=== PATIENT | male | born 1980 | race Caucasian/White ===

== ENCOUNTER 2019-11-12 16:01 | Emergency (ER) | payer OTHER ==
[2019-11-12] MEDS ORDERED: FAMOTIDINE 20 MG/2 ML VIAL IV ONE (16:09)
[2019-11-12] MEDS ORDERED: PROMETHAZINE INJ 25 MG/ML AMP ONE (16:09)
[2019-11-12] MEDS ORDERED: KETOROLAC 30 MG/ML INJ ONE (16:09)
[2019-11-12] MEDS ORDERED: ONDANSETRON 4 MG/2 ML VIAL ONE (16:09)
--- NOTE | 2019-11-12 16:46 | RAD REPORT ---
EXAM DESCRIPTION: CT - Stone Protocol - 11/12/2019 4:28 pm CLINICAL HISTORY: Abdominal pain. Right flank pain COMPARISON: 2007 TECHNIQUE: Computed axial tomography of the abdomen pelvis was obtained without oral or IV contrast. Lack of IV and oral contrast limits evaluation of solid organs, bowel, and vessels. Coronal reformat ruth images were obtained and reviewed. All CT scans are performed using dose optimization technique as appropriate and may include automated exposure control or mA/KV adjustment according to patient size. FINDINGS: A renal calculus is not seen. Mild right hydronephrosis. 3 millimeter calculus distal righ t ureter Hounsfield unit 864 The liver, spleen, pancreas and left adrenal appear grossly normal. 7 millimeter right adrenal lipoma There is no evidence of diverticulitis. The appendix appears normal Small inguinal hernias. Spondylolysis L5 IMPRESSION: 3 millimeter calculus distal right ureter resulting in mild right hydronephrosis
[2019-11-12 17:27] LABS: Absolute Lymphocytes (CBC) 5.8 K/uL (0.7-4.9); Basophils % 0.3 % (0-1.3); Hematocrit 45.4 % (39.6-49.0); Lymphocytes % 38.3 % (15.3-44.8); MPV 9.9 fL (7.6-11.3); RBC Red Blood Cell Count 5.09 M/uL (4.33-5.43)
[2019-11-12 17:30] LABS: Albumin 4.5 g/dL (3.4-5.0); Bilirubin Direct 0.1 mg/dL (0-0.2); Bilirubin Total 0.5 mg/dL (0.2-1.0); Magnesium 1.7 mg/dL (1.8-2.4); Potassium 3.2 mmol/L (3.5-5.1)
[2019-11-12] MEDS ORDERED: MAGNESIUM SULFATE 1 gm IVPB 1 GM/100 ML BAG IV ONE (17:33)
[2019-11-12] MEDS ORDERED: TAMSULOSIN 0.4 MG SR CAP ONE (17:33)
[2019-11-12 17:42] LABS: Urine Bacteria <20 /HPF (NONE SEEN); Urine Culture Reflex Order NOT NEEDED; Urine RBC 20-50 /HPF (NONE SEEN)
[2019-11-12 17:42] LABS: Urine Blood 3+ (NEG); Urine Glucose NEGATIVE (NEG); Urine Protein NEGATIVE (NEG); Urine Specific Gravity >1.030 (1.005-1.030)
--- NOTE | 2019-11-12 17:47 | EDPHYS ---
Physician Documentation [facility] Name: Cheikh Ross Age: 39 yrs Sex: Male : 1980 Arrival Date: 11/12/2019 Time: 16:03 Bed 13 Private MD: ED Physician Tyler Saldaña HPI: 11/11 16:05 This 39 yrs old Male presents to ER via Unassigned with complaints of cp Abdominal Pain. 16:05 The patient presents with abdominal pain right flank. Onset: The symptoms/episode cp began/occurred 3 day(s) ago. 16:05 The symptoms radiate to right back, right testicle. cp 16:05 Associated signs and symptoms: Pertinent positives: nausea and vomiting, Pertinent cp negatives: constipation, diarrhea, fever. Historical: - Allergies: 16:11 No Known Allergies; em - Home Meds: 16:11 None [Active]; em - PMHx: 16:11 None; em - PSHx: 16:11 None; em - Immunization history:: Adult Immunizations up to date. - Social history:: Smoking status: Patient denies any tobacco usage or history of. ROS: 16:15 Constitutional: Negative for body aches, chills, fever. cp 16:15 Eyes: Negative for injury, pain, redness, and discharge. cp 16:15 ENT: Negative for ear pain, sore throat, difficulty swallowing, difficulty handling secretions. 16:15 Cardiovascular: Negative for chest pain, palpitations. 16:15 Respiratory: Negative for cough, shortness of breath, wheezing. 16:15 Abdomen/GI: Positive for abdominal pain, nausea and vomiting, Negative for diarrhea, constipation. 16:15 Back: Positive for flank pain, on the right. 16:15 : Positive for urinary frequency, testicular pain 16:15 Neuro: Negative for altered mental status, headache, weakness. 16:15 All other systems are negative. Exam: 16:20 Constitutional: The patient appears in no acute distress, alert, awake, non-toxic, well cp developed, well nourished, uncomfortable. 16:20 Head/Face: Normocephalic, atraumatic. cp 16:20 Eyes: Periorbital structures: appear normal, Conjunctiva: normal, no exudate, no injection, Sclera: no appreciated abnormality, Lids and lashes: appear normal, bilaterally. 16:20 ENT: External ear(s): are unremarkable, Nose: is normal, Mouth: Lips: moist, Oral mucosa: moist, Posterior pharynx: Airway: no evidence of obstruction, patent. 16:20 Chest/axilla: Inspection: normal, Palpation: is normal, no crepitus, no tenderness. 16:20 Cardiovascular: Rate: normal, Rhythm: regular. 16:20 Respiratory: the patient does not display signs of respiratory distress, Respirations: normal, no use of accessory muscles, no retractions, labored breathing, is not present, Breath sounds: are clear throughout, no decreased breath sounds, no stridor, no wheezing. 16:20 Abdomen/GI: Inspection: abdomen appears normal, Bowel sounds: active, all quadrants, Palpation: soft, in all quadrants, mild abdominal tenderness, in the anterior aspect of right lateral abdomen, posterior aspect of right lateral abdomen and right lower quadrant, rebound tenderness, is not appreciated, voluntary guarding, is not appreciated, involuntary guarding, is not appreciated. 16:20 Back: pain, that is mild, of the right mid back. 16:20 Neuro: Orientation: to person, place \T\ time. Mentation: is normal, Motor: moves all fours, strength is normal. Vital Signs: 15:49 BP 117 / 95; Pulse 69; Resp 20; Pulse Ox 97% ; ah 15:55 BP 119 / 76; Pulse 89; Resp 24; Temp 99.2(O); Pulse Ox 100% on R/A; Weight 90.72 kg; em Height 5 ft. 6 in. (167.64 cm); Pain 10/10; 17:30 BP 117 / 77; Pulse 73; Resp 18; Pulse Ox 97% ; ah 15:55 Body Mass Index 32.28 (90.72 kg, 167.64 cm) em MDM: 16:06 Patient medically screened. cp 16:30 Differential diagnosis: appendicitis, cholecystitis, Cholelithiasis, Pyelonephritis, cp Testicular Torsion, Ureterolithiasis, urinary tract infection. 17:34 ED course: VSS. Pain and nausea improved, patient appears more comfortable. cp 17:45 Data reviewed: vital signs, nurses notes, lab test result(s), radiologic studies, CT cp scan. 17:45 Response to treatment: the patient's symptoms have markedly improved after treatment. 11/11 16:06 Order name: Basic Metabolic Panel; Complete Time: 17:32 11/11 17:32 Interpretation: Normal except: K 3.2; GLUC 131; GFR 75. 11/11 16:06 Order name: CBC with Diff; Complete Time: 17:44 cp 11/11 17:44 Interpretation: Normal except: WBC 15.1; NEUT A 8.2; LYMA 5.8. 11/11 16:06 Order name: Hepatic Function; Complete Time: 17:32 11/11 16:06 Order name: Lipase; Complete Time: 17:32 11/11 16:06 Order name: Magnesium; Complete Time: 17:32 11/11 17:33 Interpretation: Abnormal: MG 1.7. 11/11 16:59 Order name: Urine Microscopic Only; Complete Time: 17:44 cp 11/11 16:06 Order name: CT Stone Protocol; Complete Time: 16:57 cp 11/11 17:30 Interpretation: Report reviewed. 11/11 16:59 Order name: Urine Culture 11/11 17:24 Order name: Urine Dipstick--Ancillary (enter results); Complete Time: 17:44 11/11 16:06 Order name: IV Saline Lock; Complete Time: 16:12 cp 11/11 16:06 Order name: Labs collected and sent; Complete Time: 16:12 11/11 16:59 Order name: Urine Dipstick-Ancillary (obtain specimen); Complete Time: 17:32 cp 11/11 17:01 Order name: Urine Strainer; Complete Time: 18:17 11/11 17:34 Order name: PO challenge; Complete Time: 17:53 cp Administered Medications: 16:00 Drug: NS 0.9% 1000 ml Route: IV; Rate: 1 bolus; Site: right antecubital; em 16:02 Drug: Zofran (Ondansetron) 4 mg Route: IVP; Site: right antecubital; em 18:15 Follow up: Response: No adverse reaction 16:04 Drug: TORadol - Ketorolac 15 mg Route: IVP; Site: right antecubital; em 18:14 Follow up: Response: No adverse reaction 16:05 Drug: Pepcid 20 mg Route: IVP; Site: right antecubital; em 18:14 Follow up: Response: No adverse reaction 16:07 Drug: Phenergan 25 mg Route: IVP; Site: right antecubital; em 18:17 Follow up: Response: No adverse reaction; Nausea is decreased 17:26 Drug: Rocephin 1 grams Route: IV; Rate: calculated rate; Site: right antecubital; 17:30 Drug: Flomax 0.4 mg Route: PO; ah 18:14 Follow up: Response: No adverse reaction 17:32 Drug: Magnesium Sulfate 1 grams Route: IVPB; Infused Over: 1 hrs; Site: right ah antecubital; 18:32 Follow up: IV Status: Completed infusion; IV Intake: 100ml vc 17:53 Drug: Potassium Effervescent Tablet 50 mEq Route: PO; vc 18:14 Follow up: Response: No adverse reaction Disposition: 11/12 07:28 Co-signature as Attending Physician, Tyler Saldaña MD I agree with the assessment and kdr plan of care. Disposition: 11/12/19 17:46 Discharged to Home. Impression: Calculus of ureter - right, Nausea and vomiting. - Condition is Stable. - Discharge Instructions: Kidney Stones, Nausea and Vomiting, Adult, Renal Colic. - Prescriptions for Keflex 500 mg Oral Capsule - take 1 capsule by ORAL route every 12 hours for 7 days; 14 capsule. Tylenol- Codeine #3 300-30 mg Oral Tablet - take 2 tablets by ORAL route every 6 hours As needed; 20 tablet. Flomax 0.4 mg Oral Capsule, Sust. Release 24 hr - take 1 capsule by ORAL route once daily As needed 1/2 hour following the same meal each day; 5 capsule. promethazine 25 mg Oral Tablet - take 1 tablet by ORAL route every 6 hours As needed; 20 tablet. - Medication Reconciliation Form, Thank You Letter, Antibiotic Education, Prescription Opioid Use form. - Follow up: Arthur Mccoy MD; When: 1 - 2 days; Reason: Worsening of condition. - Problem is new. - Symptoms have improved. Signatures: Dispatcher [employer] EDTyler Willis MD MD kdr Munoz, Edgar, RN RN em Tom Zepeda PA PA cp Calcote, Vanessa, RN RN vc Harris, Amy, RN RN Corrections: (The following items were deleted from the chart) 07/23 17:44 17:44 Normal except: WBC 15.1; NEUT A 8.2. cp cp 19:06 17:46 11/12/2019 17:46 Discharged to Home. Impression: Calculus of ureter - right; vc Nausea and vomiting. Condition is Stable. Forms are Medication Reconciliation Form, Thank You Letter, Antibiotic Education, Prescription Opioid Use. Follow up: Arthur Mccoy; When: 1 - 2 days; Reason: Worsening of condition. Problem is new. Symptoms have improved. cp
--- NOTE | 2019-11-12 17:47 | ER ---
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 15:55 Method Of Arrival: EMS: [facility] em 15:55 Coronavirus screen: Patient denies a cough. Patient denies shortness of breath or em difficulty breathing. Patient denies measured and/or subjective temperature greater than 100.4F prior to today's visit. Patient denies travel on a cruise ship or to a country the [facility]NOTE 3] currently lists as an affected area. Patient denies contact with known and/or suspected case of COVID-19. Ebola Screen: Patient negative for fever greater than or equal to 101.5 degrees Fahrenheit, and additional compatible Ebola Virus Disease symptoms Patient denies exposure to infectious person. Patient denies travel to an Ebola-affected area in the 21 days before illness onset. No symptoms or risks identified at this time. Initial Sepsis Screen: Does the patient meet any 2 criteria? No. Patient's initial sepsis screen is negative. Does the patient have a suspected source of infection? No. Patient's initial sepsis screen is negative. Risk Assessment: Do you want to hurt yourself or someone else? Patient reports no desire to harm self or others. Onset of symptoms was November 12, 2019. 15:55 Acuity: KASIA 2 em Historical: - Allergies: 16:11 No Known Allergies; em - Home Meds: 16:11 None [Active]; em - PMHx: 16:11 None; em - PSHx: 16:11 None; em - Immunization history:: Adult Immunizations up to date. - Social history:: Smoking status: Patient denies any tobacco usage or history of. Screenin:46 Abuse screen: Denies threats or abuse. Nutritional screening: No deficits noted. Tuberculosis screening: No symptoms or risk factors identified. Fall Risk None identified. Assessment: 16:15 General: Appears in no apparent distress. Behavior is cooperative, crying, restless. Pain: Complains of pain in right femoral area, right inguinal area and right hip Pain currently is 10 out of 10 on a pain scale. Neuro: Level of Consciousness is awake, alert, obeys commands, Oriented to person, place, time, situation. Cardiovascular: Heart tones S1 S2 present Capillary refill < 3 seconds Patient's skin is warm and dry. Respiratory: Airway is patent Respiratory effort is even, unlabored. GI: Bowel sounds present X 4 quads. Abdomen is tender to palpation in right lower quadrant Reports nausea, vomiting. : Reports dysuria. Derm: Skin is intact, is healthy with good turgor, Skin is. 18:15 Reassessment: Patient appears in no apparent distress at this time. Patient and/or vc family updated on plan of care and expected duration. Pain level reassessed. Patient is alert, oriented x 3, equal unlabored respirations, skin warm/dry/pink. Patient denies pain at this time. Patient states feeling better. Patient states symptoms have improved. 18:42 Reassessment: Prescription printer is not working this time. Awaiting on prescriptions. Pt notified of wait. Discussed discharge plans. Pt voiced understanding. Vital Signs: 15:49 BP 117 / 95; Pulse 69; Resp 20; Pulse Ox 97% ; ah 15:55 BP 119 / 76; Pulse 89; Resp 24; Temp 99.2(O); Pulse Ox 100% on R/A; Weight 90.72 kg; em Height 5 ft. 6 in. (167.64 cm); Pain 10/10; 17:30 BP 117 / 77; Pulse 73; Resp 18; Pulse Ox 97% ; ah 15:55 Body Mass Index 32.28 (90.72 kg, 167.64 cm) em ED Course: 15:55 Maintain EMS IV. Dressing intact. Good blood return noted. Site clean \T\ dry. Gauge \T\ em site: 20 G RAC. 16:03 Patient arrived in ED. ss 16:04 oTm Zepeda PA is PHCP. cp 16:04 Tyler Saldaña MD is Attending Physician. cp 16:11 Triage completed. em 16:11 Arm band placed on. em 16:15 Gail Keen, RN is Primary Nurse. ah 16:28 CT Stone Protocol In Process Unspecified. EDMS 17:37 Urine Dipstick--Ancillary (enter results) Sent. kj1 17:37 Urine Culture Sent. kj1 17:37 Urine Microscopic Only Sent. kj1 17:45 Arthur Mccoy MD is Referral Physician. cp 17:46 Patient has correct armband on for positive identification. Placed in gown. Bed in low ah position. Call light in reach. Side rails up X2. Pulse ox on. NIBP on. 18:26 No provider procedures requiring assistance completed. IV discontinued, intact, vc bleeding controlled, No redness/swelling at site. Pressure dressing applied. Administered Medications: 16:00 Drug: NS 0.9% 1000 ml Route: IV; Rate: 1 bolus; Site: right antecubital; em 16:02 Drug: Zofran (Ondansetron) 4 mg Route: IVP; Site: right antecubital; em 18:15 Follow up: Response: No adverse reaction ah 16:04 Drug: TORadol - Ketorolac 15 mg Route: IVP; Site: right antecubital; em 18:14 Follow up: Response: No adverse reaction ah 16:05 Drug: Pepcid 20 mg Route: IVP; Site: right antecubital; em 18:14 Follow up: Response: No adverse reaction ah 16:07 Drug: Phenergan 25 mg Route: IVP; Site: right antecubital; em 18:17 Follow up: Response: No adverse reaction; Nausea is decreased ah 17:26 Drug: Rocephin 1 grams Route: IV; Rate: calculated rate; Site: right antecubital; ah 17:30 Drug: Flomax 0.4 mg Route: PO; ah 18:14 Follow up: Response: No adverse reaction ah 17:32 Drug: Magnesium Sulfate 1 grams Route: IVPB; Infused Over: 1 hrs; Site: right ah antecubital; 18:32 Follow up: IV Status: Completed infusion; IV Intake: 100ml vc 17:53 Drug: Potassium Effervescent Tablet 50 mEq Route: PO; vc 18:14 Follow up: Response: No adverse reaction ah Intake: 18:32 IV: 100ml; Total: 100ml. vc Outcome: 17:46 Discharge ordered by . cp 18:44 Discharged to home ambulatory. ah 18:44 Condition: good 18:44 Discharge instructions given to patient, Instructed on discharge instructions, follow up and referral plans. medication usage, Demonstrated understanding of instructions, follow-up care, medications, Prescriptions given X 4. 19:06 Patient left the ED. Signatures: Dispatcher [employer] Chad Spence RN Tatyana Fraga RN RN ss Page, Corey, PA PA cp Jackson, Kandis kj1 Muna Freeman RN RN vc Harris, Amy, RN RN
[2019-11-12] MEDS ORDERED: POTASSIUM 25 MEQ EFFERV TAB ONE (17:57)
[2019-11-12 19:11] VITALS: BP 117/77; O2SAT 97
== END 2019-11-12 19:06 | disposition home or self-care (01) ==
LOC: ER 16:01
DX: N20.1 Calculus of ureter (principal)
CPT/HCPCS: 96365; 87088; 85025; 80048; 36415; 83735; 80076; 83690; 76377; 74176; 96375; 99284; J2550; J3475; J2405; 81003; 81015; 87086